=== PATIENT | female | born 1990 | race American Indian/Alaskan Native ===

== ENCOUNTER 2025-01-28 06:51 | Inpatient (IN) | payer SELFPAY ==
[~2025-01-28] VITALS: Ht 162.6 cm; Wt 60.7 kg
[2025-01-28 07:26] LABS: GLUCOMETER DEV NAME(LOC) ERT.7; GLUCOSE,POINT OF CARE 70 MG/DL (70-110)
[2025-01-28] MEDS: SODIUM CHLORIDE 0.9% 1,000 ML IV ONE (07:28)
[2025-01-28] MEDS: FAMOTIDINE 20 MG/2 ML VIAL IVP ONE (07:28)
[2025-01-28 07:29] LABS: PLATELET COUNT (AUTO) 279 K/uL (150-450); RED BLOOD CELL COUNT(AUTO) 3.98 MIL/uL (4.00-5.20); RED CELL DISTRIBUTION WIDTH 16.7 % (11.5-14.5); WHITE BLOOD COUNT (AUTO) 4.8 K/uL (4.5-11.0)
[2025-01-28 07:38] LABS: CALCIUM, TOTAL 9.1 mg/dL (8.8-10.5); CREATININE 0.68 mg/dL (0.60-1.30); GLOMERULAR FILTR. RATE CALC > 60 mL/min (>60); GLUCOSE,RANDOM 64 mg/dL (70-110); SODIUM SERUM 139 mmol/L (136-145); UREA NITROGEN, BLOOD 9 mg/dL (7-18)
[2025-01-28 07:48] LABS: ASPARTATE AMINOTRANSFERASE 97 U/L (15-37); HCG,QUANTITATIVE < 1 mIU/mL (0-6); TOTAL PROTEIN, SERUM 9.0 g/dL (6.4-8.2)
[2025-01-28] MEDS: ONDANSETRON HCL 4 MG/2 ML VIAL IVP ONE (09:45)
[2025-01-28] MEDS ORDERED: CHLO5CAP4 PO (10:28)
[2025-01-28] MEDS: DEXTROSE 50%-WATER 25 GM/50 ML SYRINGE IVP ONE (11:34)
[2025-01-28 11:41] LABS: GLUCOMETER DEV NAME(LOC) ERT.7; GLUCOSE,POINT OF CARE 58 MG/DL (70-110)
[2025-01-28 12:00] LABS: APPEARANCE,URINE HAZY (CLEAR); GLUCOSE, URINE (UA) TRACE mg/dL (NEGATIVE); LEUKOCYTE ESTERASE ,URINE NEGATIVE (NEGATIVE); NITRATE,URINE NEGATIVE (NEGATIVE); OCCULT BLOOD,URINE TRACE (NEGATIVE); SPECIFIC GRAVITIY, URINE 1.017 (1.003-1.030)
[2025-01-28 12:03] LABS: PH,URINE DRUG SCREEN 5.5 (5.0-8.0); SQUAMOUS EPITHELIAL CELL,UR Few /LPF (None Seen)
[2025-01-28 12:07] LABS: ALCOHOL, URINE DRUG SCREEN POSITIVE (NEGATIVE); AMPHET/METH SCREEN,URINE NEGATIVE (NEGATIVE); BARBITURATE SCREEN, URINE NEGATIVE (NEGATIVE); CANNABINOID SCREEN,URINE POSITIVE (NEGATIVE); COCAINE SCREEN,URINE NEGATIVE (NEGATIVE); METHADONE SCREEN, URINE NEGATIVE (NEGATIVE)
[2025-01-28 12:25] LABS: GLUCOMETER DEV NAME(LOC) ERT.7; GLUCOSE,POINT OF CARE 159 MG/DL (70-110)
[2025-01-28] MEDS ORDERED: IPRATROPIUM BROMIDE 0.5 MG/2.5 ML NEB SOLUTION NEB PRN (15:15)
[2025-01-28] MEDS ORDERED: MORPHINE SULFATE 2 MG/ML SYRINGE IVP PRN (15:15)
[2025-01-28] MEDS ORDERED: ALBUTEROL SULFATE 2.5 MG/0.5 ML NEB SOLUTION NEB PRN (15:15)
[2025-01-28] MEDS ORDERED: MAGNESIUM HYDROXIDE SUSPENSION 30 ML UDCUP PO PRN (15:15)
[2025-01-28] MEDS ORDERED: ZOLPIDEM TARTRATE 5 MG TABLET PO PRN (15:15)
[2025-01-28] MEDS ORDERED: BISACODYL 10 MG RECTAL RECTAL SUPPOSITORY PR PRN (15:15)
[2025-01-28] MEDS ORDERED: ACETAMINOPHEN 325 MG TABLET PO PRN (15:15)
[2025-01-28] MEDS ORDERED: HYDROCODONE/ACETAMINOPHEN 5-325 MG TABLET PO PRN (15:15)
[2025-01-28] MEDS ORDERED: ONDANSETRON HCL 4 MG/2 ML VIAL IVP PRN (15:15)
[2025-01-28] MEDS ORDERED: LORazepam 2 MG/ML VIAL IVP PRN (15:45)
[2025-01-28] MEDS: HEPARIN SODIUM,PORCINE 5,000 UNITS/ML VIAL SQ SCH (15:49)
[2025-01-28] MEDS: 1: MAGNESIUM SULFATE 2 GM, MVI, ADULT NO.1 WITH VIT K 10 ML, THIAMINE 100 MG, FOLIC ACID IV SCH (16:34)
[2025-01-28 16:37] VITALS: BP 155/98; PULSE 93; RESP 19; TEMP 98.8; O2SAT 98
[2025-01-28 19:20] VITALS: BP 138/84; PULSE 108; RESP 18; TEMP 98.8; O2SAT 99
[2025-01-28 23:51] VITALS: BP 138/86; PULSE 87; RESP 18; TEMP 98.2; O2SAT 100
[2025-01-29 04:16] VITALS: BP 142/93; PULSE 84; RESP 19; TEMP 98.1; O2SAT 99
[2025-01-29] MEDS ORDERED: SODIUM CHLORIDE 0.9% 1,000 ML ONE (04:24)
[2025-01-29 06:42] LABS: PLATELET COUNT (AUTO) 212 K/uL (150-450); RED BLOOD CELL COUNT(AUTO) 3.68 MIL/uL (4.00-5.20); RED CELL DISTRIBUTION WIDTH 16.4 % (11.5-14.5); WHITE BLOOD COUNT (AUTO) 4.4 K/uL (4.5-11.0)
[2025-01-29 07:05] VITALS: BP 147/98; PULSE 76; RESP 18; TEMP 98.2; O2SAT 98
[2025-01-29 07:05] LABS: CALCIUM, TOTAL 8.8 mg/dL (8.8-10.5); CREATININE 0.64 mg/dL (0.60-1.30); GLOMERULAR FILTR. RATE CALC > 60 mL/min (>60); GLUCOSE,RANDOM 130 mg/dL (70-110); SODIUM SERUM 132 mmol/L (136-145); UREA NITROGEN, BLOOD 4 mg/dL (7-18)
[2025-01-29] MEDS: PANTOPRAZOLE SODIUM 40 MG DR TABLET PO SCH (08:28)
[2025-01-29 10:57] VITALS: BP 127/81; PULSE 95; RESP 18; TEMP 98.6; O2SAT 98
[2025-01-29 16:35] VITALS: BP 139/84; PULSE 88; RESP 18; TEMP 98.2; O2SAT 98
[2025-01-29 20:04] VITALS: BP 135/89; PULSE 91; RESP 18; TEMP 98.2; O2SAT 99
== END 2025-01-29 21:20 | disposition home or self-care (01) | DRG 392 ==
LOC: EMS 06:59 → EDH 13:18 → 5S 15:46
PROVIDERS: ADMIT Hospitalist; ATTEND Hospitalist
DX: K29.70 Gastritis, unspecified, without bleeding (principal); F10.939 Alcohol use, unspecified with withdrawal, unspecified; E87.29 Other acidosis; E11.9 Type 2 diabetes mellitus without complications; R07.9 Chest pain, unspecified; K29.20 Alcoholic gastritis without bleeding; Y90.8 Blood alcohol level of 240 mg/100 ml or more; F10.929 Alcohol use, unspecified with intoxication, unspecified
CPT/HCPCS: 71045; 80048; 80076; 80307; 81001; 82962; 83690; 83735; 84702; 85025; 93005; 96361; 96374; 96375; 99285; G0480; J1644; J2405; J3411; J3475; J3490; J7030; 36415-L1; 36415-TC